=== PATIENT | male | born 1970 | race Caucasian/White ===

== ENCOUNTER → 2016-10-03 | Day surgery (SDC) | payer OTHER ==
[~2016-10-03] MED LIST: ASPIRIN81 M1 PO; CLARITIN10 M3 PO; CRESTOR10 MG PO; DIPHENHYDRAMINE50 M1 PO; FLOMAX0.4 M1 PO; GABAPENTIN300 M2 PO; HYDROCODON-ACE1 EAC5 PO; ISOSORBIDE DINI30 MG PO; KAPIDEX60 MG PO; LEVAQUIN250 MG PO; LISINOPRIL10 MG PO; LORTAB 10-3251 EACH PO; MULTI-VITAMIN W1 TA1 PO; NICOTINE TRANSD21 MG TD; OXYCODONE HCL5 MG PO; PANTOPRAZOLE SO40 MG PO; PERCOCET 10/3251 TAB PO; PERCOCET 5-3251 TAB PO; PHENERGAN25 MG PO; PLAVIX PO; SKELAXIN PO; THIAMINE HCL100 MG PO; TOPROL XL 50 MG50 MG PO; VICODIN 5/1 TAB 5/50 PO; XARELTO10 MG PO
--- NOTE | ~2016-10-03 | OR ---
Unit #: [id number] #: [id number] Patient: JACK HERNANDEZ [id number] [address] [place], [place] [address] [id number] MR#: [id number] NAME: JACK HERNANDEZ ROOM: Date of Procedure: 10/03/2016 Admission Date: 10/03/2016 Surgeon: Blaze Suresh M.D. : 1970 Attending Physician: Blaze Suresh M.D. Primary Care Physician: Kamilah Torres A.P.R.N. OPERATIVE REPORT PREOPERATIVE DIAGNOSIS Complex regional pain syndrome, right lower extremity. POSTOPERATIVE DIAGNOSIS Complex regional pain syndrome, right lower extremity. PROCEDURES PERFORMED 1. Spinal cord stimulator trial electrodes x2. 2. Physician programming of stimulator over 1 hour. 3. Fluoroscopy. SURGICAL INDICATION AND RATIONALE Mr. Jack Hernandez is a pleasant 46-year-old, male, who has been having severe neuropathic pain in the right foot, ankle and up into his right knee area. The patient had suffered a fall at workplace where he had fallen about 8 foot from a ladder and had fallen on his foot, suffering an ankle fracture. The patient has had at least 7 surgeries to his right ankle and now he has developed significant pain, which is burning and paresthetic in nature. The patient has been on oral pain medication with very limited relief of pain. The patient is here to undergo a spinal cord stimulator trial. The patient has undergone an extensive cardiac evaluation, psychological evaluation and an education process regarding this procedure and understands the risks, benefits, and alternatives available and would like to proceed. The patient has also had an education process regarding the stimulator and how it works with Jennifer Miguel with [employer]. DESCRIPTION OF PROCEDURE After obtaining full informed consent and after discussion with the patient of possible complications including infection, bleeding, paralysis, mild headaches, , and other perioperative complications were discussed with the patient and consent was obtained in front of nurse, Laure. The patient was then taken back to the operating room, where a time-out was done in accordance to the joint commission guidelines where the patient's identity, procedure, and site of procedure were verified. The patient received antibiotic coverage before entering the operating room. The patient was then positioned in the prone position and monitored anesthesia care was provided by the nurse corner former. The patient was then prepped and draped in the usual fashion. Then under fluoroscopic view, I was able identify the interspace between L2 and L3. After the skin target sites were anesthetized, I placed a 14-gauge Tuohy needle, using off to the midline of right access to obtain access to the epidural Unit #: [id number] #: [id number] Patient: JACK HERNANDEZ space using a loss of resistance technique. Once the epidural space was accessed and after negative aspiration for heme, CSF, and paresthesia, I navigated a Medtronic Vectris 60 cm compact space electrode octad through the Tuohy needle to reach the upper border of T10 superiorly. This was done in an off right of the midline position and I saw lateral projections of the C-arm to make sure that the electrode was in the posterior epidural space. Once this was done, I placed a second Tuohy needle to access the epidural space. This time using an off left from midline position and I used the loss of resistance technique. Once the epidural space was accessed and after negative aspiration for heme, CSF and paresthesia, I navigated the second Medtronic Vectris 60 cm compact octad. Again, this electrode placed in the posterior epidural space and the tip of this catheter was placed just below the bottom octad of the first electrode, again off to the right of midline position. The electrode was ascertained to be in the posterior epidural space. The patient was then brought back into more superficial plane of anesthesia where I could freely communicate with the patient. The patient told me that with spinal cord stimulator programming that he was able to get the stimulation pattern into the right leg from the knee all the way into the foot and ankle. The patient did appreciate the stimulation pattern and said that it is helping his pain. The Tuohy needle along with the electrode stylettes were removed and the electrodes were secured to the skin using Steri-Strips, Mastisol and Tegaderm tape. The patient was then brought back to the recovery room for neurological monitoring. PLAN OF CARE After the patient had an uneventful recovery, he was discharged home neurologically intact with plans to return to my office on Thursday to have his stimulation changed from low-density stimulation to high-density stimulation. In the recovery room, spinal cord stimulator programming was repeated and we were able to still get good coverage of the stimulation in his painful areas in the right lower extremity. The patient acknowledges understanding of all the risks, benefits, and alternatives available and would like to proceed. Dictated by... Brian Radford TD: 10/04/2016 06:40 JOB #: [id number] OPERATIVE REPORT Page 1 of 1 X Blaze Suresh MD X PROCEDURE OPERATIVE NOTE
== END | disposition home or self-care (01) ==
LOC: CSUR 10:34
DX: G90.521 Complex regional pain syndrome I of right lower limb (principal); I10 Essential (primary) hypertension; F17.210 Nicotine dependence, cigarettes, uncomplicated; Z87.442 Personal history of urinary calculi; Z79.899 Other long term (current) drug therapy; Z98.890 Other specified postprocedural states
CPT/HCPCS: 76001; C1778; J0690; J2250; J3010